=== PATIENT | female | born 1960 | race African-American/Black ===

== ENCOUNTER 2016-09-14 11:02 | Emergency (ER) | payer OTHER ==
--- NOTE | ~2016-09-14 | CR63 ---
[facility] A Service of [facility] & [facility] RADIOLOGY TEXT RESULTS PATIENT: TEAGAN NAGY LOCATION: CFTX : 56 UNIT #: [id number] AGE: [address]: Cynthia Boudreaux APRN SEX: F ORDER DR: [id number] [facility] [address] [place], [place] [address] [id number] E MR#: [id number] Acc #: [id number] NAME: TEAGAN NAGY. : 1960 SEX: F STUDY DATE/TIME: 09/14/2016 10:59 UNIT: [facility] ROOM: STUDY DESCRIPTION: CR Chest 2 View Attending Physician: Cynthia Boudreaux A.P.R.N. Ordering Physician: Ed Cedric Jacome M.D. Primary Care Physician: Lamont Stock M.D. MEDICAL IMAGING REPORT This report is preliminary unless electronic signature is present EXAM Chest x-ray 09/14/2016. INDICATIONS Shortness of air, cough and chest pain for 1 week. History of CHF. FINDINGS 2 views of the chest are compared with 12/22/2011. Heart remains enlarged. Lungs are clear. Vascularity is normal. There is no pneumothorax. IMPRESSION Stable cardiomegaly. No active disease. Dictated by... Manoj Birmingham Jr., M.D. THIS IS AN ELECTRONICALLY VERIFIED REPORT Manoj Birmingham Jr., M.D. at 09/14/2016 6:58 PM RLK/kasie TD: 09/14/2016 16:13 JOB #: [id number] MEDICAL IMAGING REPORT Page 1 of 1 COPY
[~2016-09-14 11:02] MED LIST: ACETAMINOPHEN PO; ALBUTEROL17 GM INH; AMITRIPTYLINE H75 MG PO; AMITRYPTYLINE PO; ASPIRIN PO; ASPIRIN81 M1 PO; CIPRO PO; COMBIVENT INH14.7 GM INH; COUGH SYRUP; DICLOFENAC PO; FLEXERIL10 MG PO; IBUPROFEN PO; MEDROL PO; NAPROXEN PO; NICOTINE T1 PATCH .2 TOP; NITROGYLCERIN SUBLINGUAL; OXYCONTIN PO; PERCOCET 51 UDTAB 5/ DOB; PRILOSEC PO; TRAZODONE HCL150 MG PO; TRAZODONE PO; VICODIN 5/500 T1 TAB PO
[2016-09-14 11:15] LABS: INFLUENZA A NEG (NEG); INFLUENZA B NEG (NEG)
== END 2016-09-14 12:35 | disposition home or self-care (01) ==
LOC: CFTX 11:02
PROVIDERS: Nurse Practitioner
DX: J20.9 Acute bronchitis, unspecified (principal); F17.210 Nicotine dependence, cigarettes, uncomplicated; Z90.49 Acquired absence of other specified parts of digestive tract; Z90.710 Acquired absence of both cervix and uterus; Z79.899 Other long term (current) drug therapy; Z88.1 Allergy status to other antibiotic agents; Z91.040 Latex allergy status; Z88.8 Allergy status to other drugs, medicaments and biological substances
CPT/HCPCS: 71020; 87651; 87804; 94640; 99283; J2930